=== PATIENT | female | born 1980 | race Caucasian/White ===

== ENCOUNTER 2020-09-15 13:33 | Outpatient (REF) | payer BC, SELFPAY ==
[2020-09-15 15:22] LABS: HCG Quantitative < 2 mIU/mL; Thyroid Stimulating Hormone 2.49 uIU/mL (0.32-4.0)
[2020-09-16 06:11] LABS: Follicle Stimulating Hormone 11.9 mIU/mL
== END 2020-09-15 13:34 | disposition home or self-care (01) ==
LOC: HO.LAB 13:33
PROVIDERS: PCP Internal Medicine; Visit Provider Advanced Practice Midwife
DX: Z01.411 Encounter for gynecological examination (general) (routine) with abnormal findings (principal); N92.6 Irregular menstruation, unspecified; R10.2 Pelvic and perineal pain
CPT/HCPCS: 36415; 83001; 84443; 84702

== ENCOUNTER 2020-09-20 15:02 | Outpatient (REF) | payer BC, SELFPAY ==
--- NOTE | ~2020-09-20 | US_ITS ---
EXAMINATION: ULTRASOUND OF THE PELVIS CLINICAL INFORMATION: Pelvic/perineal pain.. COMPARISON: 03/06/2019. TECHNIQUE: Transabdominal and transvaginal pelvic ultrasound. A transvaginal study was performed in addition to the transabdominal study which did not yield an adequate examination of the uterus and ovaries due to superimposed distended gas-filled loops of bowel. FINDINGS: The uterus is normal in size and appearance, measuring 8.1 x 4.3 x 4.9 cm longitudinally, anteroposteriorly and transversely. The endometrial stripe thickness is normal, measuring 0.8 cm in thickness. Small cystic areas noted along the endometrium. No focal myometrial mass is seen. The ovaries bilaterally are visualized, with the right ovary measuring 2.4 x 1.2 x 1.6 cm and the left ovary measuring 5.5 x 2.7 x 3.6 cm. There is a complex cyst in the left ovary measuring 3.3 x 2.7 x 3.1 cm with a thin internal septation. Some internal echoes noted. Small amount of pelvic free fluid, adjacent to the left ovary. US/US transvaginal IMPRESSION: Complex left ovarian cyst with thin septation. Adjacent free fluid. This could represent a hemorrhagic cyst..
--- NOTE | ~2020-09-20 | US_ITS ---
EXAMINATION: ULTRASOUND OF THE PELVIS CLINICAL INFORMATION: Pelvic/perineal pain.. COMPARISON: 03/06/2019. TECHNIQUE: Transabdominal and transvaginal pelvic ultrasound. A transvaginal study was performed in addition to the transabdominal study which did not yield an adequate examination of the uterus and ovaries due to superimposed distended gas-filled loops of bowel. FINDINGS: The uterus is normal in size and appearance, measuring 8.1 x 4.3 x 4.9 cm longitudinally, anteroposteriorly and transversely. The endometrial stripe thickness is normal, measuring 0.8 cm in thickness. Small cystic areas noted along the endometrium. No focal myometrial mass is seen. The ovaries bilaterally are visualized, with the right ovary measuring 2.4 x 1.2 x 1.6 cm and the left ovary measuring 5.5 x 2.7 x 3.6 cm. There is a complex cyst in the left ovary measuring 3.3 x 2.7 x 3.1 cm with a thin internal septation. Some internal echoes noted. Small amount of pelvic free fluid, adjacent to the left ovary. US/US pelvic complete IMPRESSION: Complex left ovarian cyst with thin septation. Adjacent free fluid. This could represent a hemorrhagic cyst..
== END 2020-09-20 15:03 | disposition home or self-care (01) ==
LOC: HO.US 15:02
PROVIDERS: PCP Internal Medicine; Visit Provider Advanced Practice Midwife
DX: R10.2 Pelvic and perineal pain (principal)
CPT/HCPCS: 76830; 76856

== ENCOUNTER → 2020-10-08 11:46 | Outpatient (BNVA) | payer BC, SELFPAY | PROVIDERS: PCP Internal Medicine; Visit Provider Advanced Practice Midwife ==

== ENCOUNTER 2020-11-11 15:55 | Outpatient (REF) | payer BC, SELFPAY ==
--- NOTE | ~2020-11-11 | MM_ITS ---
EXAMINATION: MM SCREENING DIGITAL BREAST TOMOSYNTHESIS, BILATERAL CLINICAL INFORMATION: Screening. Asymptomatic. The lifetime risk of breast cancer based on the Tyrer-Cuzick Model is 9.6%. COMPARISON: Mammography: September 05, 2019 TECHNIQUE: Digital breast tomosynthesis is performed in both the craniocaudal and mediolateral oblique views along with computer-aided detection (CAD). Synthesized 2D images are generated from the tomosynthesis. FINDINGS: The breasts are extremely dense, which lowers the sensitivity of mammography (ACR BI-RADS breast composition Category d). There are no significant masses, abnormal calcifications, or other abnormalities. MM/MM tomosynthesis screening BI IMPRESSION: There are no significant changes from prior study. ASSESSMENT: BI-RADS 1: Negative RECOMMENDATION: Routine annual mammography screening. This patient's information was entered into a reminder system with a target due date for their next mammogram.
== END 2020-11-11 15:56 | disposition home or self-care (01) ==
LOC: HO.MAMMO 15:55
PROVIDERS: Visit Provider Internal Medicine
DX: Z12.31 Encounter for screening mammogram for malignant neoplasm of breast (principal)
CPT/HCPCS: 77063; 77067

== ENCOUNTER 2020-11-22 10:58 | Outpatient (REF) | payer BC, SELFPAY ==
--- NOTE | ~2020-11-22 | US_ITS ---
EXAMINATION: US PELVIS AND TRANSVAGINAL CLINICAL INFORMATION: Ovarian cyst. Vaginal bleeding. COMPARISON: Ultrasound 09/20/2020. TECHNIQUE: Transabdominal and transvaginal imaging of pelvis is performed. FINDINGS: Uterus is anteverted and anteflexed measuring 7.2 cm in length, 4.2 cm in AP and 4.1 cm in transverse dimension. There are 2 hypoechoic lesions seen. Lesion in the posterior body of the uterus measures 0.3 x 0.3 x 0.3 cm and is likely a small cyst. Second lesion in the posterior body of the uterus measures 0.3 x 0.2 x 0.2 cm. It is also a cyst. The endometrial thickness is 0.3 cm and is within normal limits. Right ovary measures 2.3 x 1.5 x 1.0 cm and volume 2.2 mL. Previously right ovary measured 2.4 x 1.2 x 1.6 cm. The left ovary measures 3.5 x 1.2 x 1.9 cm and volume 4.4 mL. Previously it measured 3.5 x 1.3 x 1.9 cm and volume 4.4 mL. There is no free fluid in the cul-de-sac. US/US pelvic and transvaginal IMPRESSION: Small subendometrial cysts of the uterus. The uterus otherwise unremarkable. Unremarkable ovaries. There is no free fluid in the cul-de-sac.
== END 2020-11-22 10:59 | disposition home or self-care (01) ==
LOC: HO.US 10:58
PROVIDERS: Visit Provider Advanced Practice Midwife
DX: N83.299 Other ovarian cyst, unspecified side (principal)
CPT/HCPCS: 76830; 76856

== ENCOUNTER → 2020-12-06 11:31 | Outpatient (BNVA) | payer BC, SELFPAY | PROVIDERS: PCP Internal Medicine; Visit Provider Advanced Practice Midwife ==

== ENCOUNTER 2021-11-15 16:05 | Outpatient (REF) | payer BC, SELFPAY ==
--- NOTE | ~2021-11-15 | MM_ITS ---
EXAMINATION: MM SCREENING DIGITAL BREAST TOMOSYNTHESIS, BILATERAL CLINICAL INFORMATION: Screening. Asymptomatic. The lifetime risk of breast cancer based on the Tyrer-Cuzick Model is 10.6%. COMPARISON: Mammography: November 11, 2020 and September 05, 2019 TECHNIQUE: Digital breast tomosynthesis is performed in both the craniocaudal and mediolateral oblique views along with computer-aided detection (CAD). Synthesized 2D images are generated from the tomosynthesis. FINDINGS: The breasts are extremely dense, which lowers the sensitivity of mammography (ACR BI-RADS breast composition Category d). There are no significant masses, abnormal calcifications, or other abnormalities. MM/MM tomosynthesis screening BI IMPRESSION: There are no significant changes from prior study. ASSESSMENT: BI-RADS 1: Negative RECOMMENDATION: Routine annual mammography screening. This patient's information was entered into a reminder system with a target due date for their next mammogram.
== END 2021-11-15 16:06 | disposition home or self-care (01) ==
LOC: HO.MAMMO 16:05
PROVIDERS: Visit Provider Internal Medicine
DX: Z12.31 Encounter for screening mammogram for malignant neoplasm of breast (principal)
CPT/HCPCS: 77063; 77067

== ENCOUNTER 2021-12-08 11:04 | Outpatient (REF) | payer BC, SELFPAY ==
[2021-12-15 06:46] LABS: HPV mRNA E6/E7 rflx Not Detected (Not Detected)
== END 2021-12-08 11:05 | disposition home or self-care (01) ==
LOC: HO.LAB 11:04
PROVIDERS: Visit Provider Advanced Practice Midwife
DX: Z01.419 Encounter for gynecological examination (general) (routine) without abnormal findings (principal); Z11.51 Encounter for screening for human papillomavirus (HPV)
CPT/HCPCS: 87624; 88142

== ENCOUNTER 2022-12-07 15:27 | Outpatient (REF) | payer BC, SELFPAY ==
--- NOTE | ~2022-12-07 | MM_ITS ---
EXAMINATION: MM SCREENING DIGITAL BREAST TOMOSYNTHESIS, BILATERAL CLINICAL INFORMATION: Screening. Asymptomatic. The lifetime risk of breast cancer based on the Tyrer-Cuzick Model is 14%. COMPARISON: Mammography: 11/15/2021, 11/11/2020, 09/05/2019 TECHNIQUE: Digital breast tomosynthesis is performed in both the craniocaudal and mediolateral oblique views along with computer-aided detection (CAD). Synthesized 2D images are generated from the tomosynthesis. FINDINGS: The breasts are heterogeneously dense, which may obscure small masses (ACR BI-RADS breast composition Category c). Breast tissue composition borders on extremely dense. Parenchymal pattern is similar to prior studies and there is no developing density or architectural abnormality. There are no significant masses, abnormal calcifications, or other abnormalities. The axilla and skin contours are unremarkable. MM/MM tomosynthesis screening BI IMPRESSION: No mammographic evidence of malignancy. ASSESSMENT: BI-RADS 1: Negative RECOMMENDATION: Routine annual mammography screening. This patient's information was entered into a reminder system with a target due date for their next mammogram.
== END 2022-12-07 15:28 | disposition home or self-care (01) ==
LOC: HO.MAMMO 15:27
PROVIDERS: Visit Provider Internal Medicine
DX: Z12.31 Encounter for screening mammogram for malignant neoplasm of breast (principal)
CPT/HCPCS: 77063; 77067

== ENCOUNTER → 2022-12-13 11:12 | Outpatient (BNVA) | payer BC, SELFPAY | PROVIDERS: PCP Internal Medicine; Visit Provider Advanced Practice Midwife ==

== ENCOUNTER 2023-12-21 10:09 | Outpatient (REF) | payer BC, SELFPAY ==
--- NOTE | ~2023-12-21 | MM_ITS ---
EXAMINATION: MM SCREENING DIGITAL BREAST TOMOSYNTHESIS, BILATERAL CLINICAL INFORMATION: Screening. Asymptomatic. COMPARISON: Mammography: This study is compared with prior exams dating back to 2019. TECHNIQUE: Digital breast tomosynthesis is performed in both the craniocaudal and mediolateral oblique views along with computer-aided detection (CAD). Synthesized 2D images are generated from the tomosynthesis. FINDINGS: The breasts are extremely dense, which lowers the sensitivity of mammography (ACR BI-RADS breast composition Category d). There are no significant masses, abnormal calcifications, or other abnormalities. MM/MM tomosynthesis screening BI IMPRESSION: No mammographic evidence of malignancy. ASSESSMENT: BI-RADS BI-RADS 1 - Negative RECOMMENDATION: Routine annual mammography screening. 1 year F/U This examination should not preclude the clinical evaluation of a suspicious palpable abnormality. This patient's information was entered into a reminder system with a target due date for their next mammogram.
== END 2023-12-21 10:10 | disposition home or self-care (01) ==
LOC: HO.MAMMO 10:09
PROVIDERS: PCP Internal Medicine; Visit Provider Internal Medicine
DX: Z12.31 Encounter for screening mammogram for malignant neoplasm of breast (principal)
CPT/HCPCS: 77063; 77067

== ENCOUNTER → 2023-12-21 10:15 | Outpatient (BNV) | payer BC, SELFPAY | PROVIDERS: PCP Internal Medicine; Visit Provider Radiology Diagnostic Radiology | DX: Z12.31 Encounter for screening mammogram for malignant neoplasm of breast (principal) | CPT/HCPCS: 77063; 77067 ==

== ENCOUNTER 2023-12-26 11:39 | Outpatient (AMB) | payer BC, SELFPAY ==
--- NOTE | 2023-12-26 11:42 | MHC.OFFVIS ---
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 Doing well with no concerns: Bladder discomfort x1 day while outside walking, she denies any pelvic pain but admits to pelvic bloating. She denies any constipation or diarrhea. She tries to eat healthy and stays active with exercise. No menses since 09/2022. Admits to hot flashes. Currently is sexually active. She denies vaginal itching, irritation or dryness. STI screening offered; she declines. Denies family history of breast, ovarian or colon cancer. Last pap smear 2021, negative. Mammogram: Pending read. [facility] Medical History Hot flashes Irregular menses Surgical History Hx of section Family History Maternal Aunt History of breast cancer Social History Household Members: Spouse and Children Housing: House Alcohol intake: current Patient Tobacco Use Status: Former Tobacco user Sexual orientation: Straight/Heterosexual Gender identity: Female Female Reproductive History Menstrual Age of Menarche: 14 control method: other (vasectomy) Total pregnancies: 2 Full term: 2 Number of Living Children: 2 Date of last pap smear: 12/08/21 (neg pap and hpv) Date of Mammogram: 12/21/23 Review of Systems Const All systems reviewed & are unremarkable except as noted in HPI and below Reports as per HPI Eyes Reports no additional complaints ENT Reports no additional complaints Card Reports no additional complaints Resp Reports no additional complaints GI Reports as per HPI and Reports no additional complaints Reports as per HPI Musc Reports no additional complaints Skin/Breast Reports as per HPI Neuro Reports no additional complaints Psych Reports no additional complaints Endo Reports no additional complaints Alberto/Lymph Reports no additional complaints Aller/Immun Reports no additional complaints Physical Exam Vital Signs: Last Vital Signs BP 100/60 12/26/23 11:43 BMI result Body Mass Index 20.6 Const General: cooperative, healthy appearing, no acute distress, well developed and alert Orientation/consciousness: patient oriented x3 HEENT Head: Yes normal to inspection Eyes General: appearance normal, both eyes and all related structures Neck Neck: Yes normal visual inspection Thyroid: Thyroid normal Chest Chest palpation & inspection: normal inspection of the chest and other (no puckering, dimpling, peau de orange, retraction, discharge, masses) Breast/axilla inspection: normal inspection of the breasts Breast/axilla palpation: normal palpation of the breasts Resp Effort & Inspection: normal respiratory effort GI Inspection: Yes normal to inspection Palpation (GI): Soft to palpation Rectal Exam - Female: deferred General: Yes bladder normal to palpation External Female Exam: normal external appearance and normal appearance of the urethra Speculum Exam - Vagina: normal appearance of the vagina, normal palpation and normal vaginal discharge Speculum Exam - Cervix: normal appearance of the cervix and normal palpation Bimanual exam- vagina & uterus: normal bimanual exam, normal palpation, uterine size normal, bladder normal to palpation, normal palpation and non-tender Bimanual Exam- Adnexa, other: Other (Fullness to the right adnexa question of a loop of bowel.) Skin General skin exam: no rashes or lesions noted Rashes: no rashes Neuro General: patient oriented x3 Cognition (Neuro): normal cognition Extrem General: Yes normal to inspection Psych Attitude: cooperative Thought process: Normal thought process present Results AMB Urinalysis, Automated UA Leukoctes 0 Leighann/uL Last Edit by CORRINE Smith on 12/26/23 12:10 UA Nitrite Negative Last Edit by CORRINE Smith on 12/26/23 12:10 UA Urobilinogen 0 mg/dL Last Edit by CORRINE Smith on 12/26/23 12:10 UA Protein 0 mg/dL Last Edit by CORRINE Smith on 12/26/23 12:10 UA pH 6.5 Last Edit by CORRINE Smith on 12/26/23 12:10 UA Blood 0 Ryan/uL Last Edit by CORRINE Smith on 12/26/23 12:10 UA Specific [place] 1.015 Last Edit by CORRINE Smith on 12/26/23 12:10 UA Ketone Negative Last Edit by Renita Juan CORRINE on 12/26/23 12:10 UA Bilirubin 0 mg/dL Last Edit by Renita Juan CORRINE on 12/26/23 12:10 UA Glucose 0 mg/dL Last Edit by Renita Juan CORRINE on 12/26/23 12:10 Assessment & Plan Assessment & Plan (1) Encounter for well woman exam with routine gynecological exam: Code(s): Z01.419 - Encounter for gynecological examination (general) (routine) without abnormal findings Category: Medical Plan: Discussed: Current recommendations for pap smears per ASCCP guidelines. Breast awareness and periodic breast exams. Maintain a healthy lifestyle including a well balanced diet and routine exercise. Workup for pelvic fullness to include pelvic ultrasound, follow up in person for test results. Any pelvic pain to report to the office or go to the emergency room if significant pain. Urinalysis is negative today. Mammogram yearly. Menopausal changes, the role of HRT. Informed of [email or web address].org, will consider options and discuss it follow up. Patient verbalizes understanding and agrees to the plan of care. She was given opportunity to ask questions and all questions were answered to the best of my ability. 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 This note is constructed using voice recognition software. While every effort has been made to ensure accuracy, donor services coordinator errors may have been included. Orders: Orders AMB Urinalysis Automated Today R10.2 - Pelvic and perineal pain US pelvic and transvaginal Today R19.00 - Intra-abdominal and pelvic swelling, mass and lump, unspecified site Coding Level of Care Code Est Pt Prev Care 40-64y(04164) Diagnoses Encounter for well woman exam with routine gynecological exam Z01.419
[2023-12-26 11:43] VITALS: BP 100/60; BMI 20.6
== END 2023-12-26 12:09 | disposition home or self-care (01) ==
LOC: HO.HWS 11:39
PROVIDERS: PCP Internal Medicine; Visit Provider Advanced Practice Midwife
DX: Z01.419 Encounter for gynecological examination (general) (routine) without abnormal findings (principal); R10.2 Pelvic and perineal pain
CPT/HCPCS: 99396

== ENCOUNTER → 2023-12-26 11:39 | Outpatient (BNVA) | payer BC, SELFPAY | PROVIDERS: PCP Internal Medicine; Visit Provider Advanced Practice Midwife | DX: Z01.411 Encounter for gynecological examination (general) (routine) with abnormal findings (principal); R10.2 Pelvic and perineal pain; R19.00 Intra-abdominal and pelvic swelling, mass and lump, unspecified site | CPT/HCPCS: 81003 ==

== ENCOUNTER 2024-01-14 11:09 | Outpatient (REF) | payer BC, SELFPAY ==
--- NOTE | ~2024-01-14 | US_ITS ---
EXAMINATION: US PELVIS CLINICAL INFORMATION: Pelvic fullness, right lower quadrant pain, last menstrual. September 2022. COMPARISON: November 22, 2020. TECHNIQUE: Ultrasound of the pelvis is performed using both transabdominal and transvaginal transducers along with Doppler. Transvaginal imaging is performed due to inadequate visualization transabdominally. FINDINGS: The uterus is anteverted and measures 6.8 x 3.2 x 4.7 cm. Uterus is heterogeneous in echotexture. Previously identified fibroids are not visualized. Endometrial thickness is 4 mm. No significant free fluid. Previously identified myometrial cysts are not visualized on the current exam, although the myometrium is substantially heterogeneous. Right ovary measures 1.9 x 0.7 x 1.8 cm, volume 1.3 mL. Left ovary measures 2.5 x 0.9 x 1.6 cm, volume 1.9 mL. US/US pelvic and transvaginal IMPRESSION: 1. Endometrial thickness is 4 mm. 2.Previously identified myometrial cysts are not visualized on the current exam, although the myometrium is substantially heterogeneous. Previously identified fibroids are not visualized on the current exam. 3. Unremarkable bilateral ovaries.
== END 2024-01-14 11:10 | disposition home or self-care (01) ==
LOC: HO.US 11:09
PROVIDERS: PCP Internal Medicine; Visit Provider Advanced Practice Midwife
DX: R19.00 Intra-abdominal and pelvic swelling, mass and lump, unspecified site (principal)
CPT/HCPCS: 76830; 76856

== ENCOUNTER 2024-02-05 15:08 | Outpatient (AMB) | payer BC, SELFPAY ==
--- NOTE | 2024-02-05 15:20 | MHC.OFFVIS ---
Intake Visit Reasons: Ultra sound follow up Adult Live In Caregiver: Adult Live In Caregiver Present Allergies penicillin V Allergy (Unknown, Verified 02/05/24 15:20) hives Is last menstrual period known: Yes HPI Comments Details: Patient is here today for a follow up ultrasound results due to history of pelvic fullness with recent exam. History of fibroids. She reports no menses in over a year. Hot flashes have much improved this year. She denies any pelvic pain. Admits to frequency of urination longstanding most of her life has bladder control during school year but off time seems to be going more frequently. PFSH Surgical History Hx of section Family History Maternal Aunt History of breast cancer Social History Household Members: Spouse and Children Housing: House Alcohol intake: current Patient Tobacco Use Status: Former Tobacco user Sexual orientation: Straight/Heterosexual Gender identity: Female Female Reproductive History Menstrual Age of Menarche: 14 Review of Systems Const All systems reviewed & are unremarkable except as noted in HPI and below Endo Reports no additional complaints Physical Exam Const General: cooperative, healthy appearing and no acute distress Psych Appearance: well kempt Attitude: cooperative Thought process: Normal thought process present Results Reviewed Results Reviewed: [address] [address] Ultrasound Report Signed Patient: Nathalie Sol MR#: [id number] : 1980 Acct:[id number] Age/Sex: 43 / F ADM Date: 01/14/24 Loc: HO.US Attending Dr: Leticia Mattson CNM Ordering Physician: Leticia Mattson CNM Date of Service: 01/14/24 Procedure(s): US pelvic and transvaginal Accession Number(s): [id number] cc: Olvin Worrell MD; Leticia Mattson CNM~ EXAMINATION: US PELVIS CLINICAL INFORMATION: Pelvic fullness, right lower quadrant pain, last menstrual. September 2022. COMPARISON: November 22, 2020. TECHNIQUE: Ultrasound of the pelvis is performed using both transabdominal and transvaginal transducers along with Doppler. Transvaginal imaging is performed due to inadequate visualization transabdominally. FINDINGS: The uterus is anteverted and measures 6.8 x 3.2 x 4.7 cm. Uterus is heterogeneous in echotexture. Previously identified fibroids are not visualized. Endometrial thickness is 4 mm. No significant free fluid. Previously identified myometrial cysts are not visualized on the current exam, although the myometrium is substantially heterogeneous. Right ovary measures 1.9 x 0.7 x 1.8 cm, volume 1.3 mL. Left ovary measures 2.5 x 0.9 x 1.6 cm, volume 1.9 mL. US/US pelvic and transvaginal IMPRESSION: 1. Endometrial thickness is 4 mm. 2.Previously identified myometrial cysts are not visualized on the current exam, although the myometrium is substantially heterogeneous. Previously identified fibroids are not visualized on the current exam. 3. Unremarkable bilateral ovaries. Dictated By: Princess Tillman MD Signed By: <Electronically signed by Princess Tillman MD in OV> 01/29/24 0655 DD/ 1152 TD/TT: Lead Radiation Therapist: Assessment & Plan Assessment & Plan (1) Encounter to discuss test results: Code(s): Z71.2 - Person consulting for explanation of examination or test findings (2) Menopausal state: Code(s): N95.1 - Menopausal and female climacteric states Plan Discussed: Ultrasound findings resolution of fibroids and myometrial cyst. Normal ovaries. Bladder frequency, bladder training advised to consider referral to urology for further evaluation, she would like to think about it and let me know in the future if she decides to do the referral. Plan [facility]. Sign up for patient portal, and schedule annual for next 01/04/2025. All of her questions and concerns were addressed to the best of my ability and shared decision making. She is agreeable to the plan of care. This note is constructed using voice recognition software. While every effort has been made to ensure accuracy, it audit manager errors may have been included. Orders: Orders Follicle Stimulating Hormone Today N91.2 - Amenorrhea, unspecified Coding Level of Care Code Est Pt Level 3 (81250) Diagnoses Encounter to discuss test results Z71.2 Menopausal state N95.1
== END 2024-02-05 18:47 ==
PROVIDERS: PCP Internal Medicine; Visit Provider Advanced Practice Midwife
DX: Z71.2 Person consulting for explanation of examination or test findings (principal); N95.1 Menopausal and female climacteric states
CPT/HCPCS: 99213

== ENCOUNTER → 2024-02-05 15:08 | Outpatient (BNVA) | payer BC, SELFPAY | PROVIDERS: PCP Internal Medicine; Visit Provider Advanced Practice Midwife ==

== ENCOUNTER 2024-02-05 15:54 | Outpatient (REF) | payer BC, SELFPAY ==
[2024-02-06 07:14] LABS: Follicle Stimulating Hormone 87.8 mIU/mL
== END 2024-02-05 15:55 | disposition home or self-care (01) ==
LOC: HO.LAB 15:54
PROVIDERS: PCP Internal Medicine; Visit Provider Advanced Practice Midwife
DX: N91.2 Amenorrhea, unspecified (principal)
CPT/HCPCS: 36415; 83001

== ENCOUNTER 2025-01-02 10:00 | Outpatient (REF) | payer BC, SELFPAY ==
--- OUTSIDE RECORDS SUMMARY | 2025-01-02 10:19 | XMS_ITS | Clinical Summary ---
Author Organization [facility] Address [address] [place] [address] Care Team Providers Care Supercalender Operator Name Role Phone Olvin Worrell MD Primary Care Provider [phone] Allergies Active Allergy Reactions Criticality Noted Date Comments Penicillin 01/03/2022 Medications acetaminophen (TYLENOL) 325 mg tablet Take 3 (three) tablets (975 mg total) by mouth every 6 (six) hours as needed. 30 tablet 01/03/2022 Active Social History Tobacco Use Types Packs/Day Years Used Date Smoking Tobacco: Never Smokeless Tobacco: Never Alcohol Use Standard Drinks/Week Comments Yes 0 (1 standard drink = 0.6 oz pur e alcohol) Comments Unknown Sex and Gender Information Value Date Recorded Sex Assigned at Not on file Legal Sex Female 6:13 PM EDT Gender Identity Not on file Sexual Orientation Not on file Last Filed Vital Signs Vital Sign Reading Time Taken Comments Blood Pressure 126/78 01/05/2022 12:45 PM EDT Pulse 62 01/05/2022 12:45 PM EDT Temperature 36.4 C (97.5 F) 01/05/2022 12:45 PM EDT Respiratory Rate 14 01/03/2022 6:25 PM EDT Oxygen Saturation 99% 01/03/2022 6:25 PM EDT Inhaled Oxygen Concentration - - Weight - - Height 172.7 cm (5' 8 ) 01/03/2022 6:25 PM EDT Body Mass Index - - Plan of Treatment Health Maintenance Due Date Last Done Comments HEPATITIS C SCREENING 1996 Cervical Cancer Screening 2000 Pap Smear 2000 DTAP/TDAP/TD VACCINES (1 - Tdap) 2008 HPV Test 2009 COVID-19 IMMUNIZATION (1 - 2 season) 2024 COLONOSCOPY (CRC) 2024 COLORECTAL CANCER SCREENING (CRC) [address]24 CT COLONOGRAPHY (CRC) 2024 FIT-DNA (CRC) 2024 FIT/iFOBT (CRC) 2024 SIGMOIDOSCOPY (CRC) 2024 INFLUENZA VACCINE (#1) 2025 04/11/2021 ZOSTER VACCINE (1 of 2) 2029 RSV IMMUNIZATION (1 - 1-dose 75+ series) 2054 IPV VACCINES Aged Out No longer eligi ble based on patient's age to complete this topic MENINGOCOCCAL B VACCINE Aged Out No l onger eligible based on patient's age to complete this topic PNEUMOCOCCAL VACCINE Aged Out No long er eligible based on patient's age to complete this topic Insurance ([facility] Address: [address] [place] [phone] Care Teams Supercalender Operator Relationship Specialty Start Date End Date Olvin Worrell MD [address] [place] [address] [address] [place] [id number] PCP - General Internal Medicine 01/05/22
== END 2025-01-02 10:01 | disposition home or self-care (01) ==
LOC: HO.MAMMO 10:00
PROVIDERS: Visit Provider Internal Medicine
DX: Z12.31 Encounter for screening mammogram for malignant neoplasm of breast (principal)
CPT/HCPCS: 77063; 77067

== ENCOUNTER → 2025-01-02 10:00 | Outpatient (BNV) | payer BC, SELFPAY | PROVIDERS: Visit Provider Radiology Body Imaging | DX: Z12.31 Encounter for screening mammogram for malignant neoplasm of breast (principal) | CPT/HCPCS: 77063; 77067 ==

== ENCOUNTER 2025-02-02 09:32 | Outpatient (AMB) | payer BC, SELFPAY ==
--- NOTE | 2025-02-02 09:36 | A.OFFPC_ITS ---
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 Lives at home with abi and 2 teenagers, feels safe there. 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 Alcohol socially on the weekend. Occasional THC gummie to help with sleep. No illicit drugs. Smoked cigarettes for 9 years, quit age 21, 1 pack per week. She runs 5 days per week, outside of injury, about 3-5 miles per day. Also lifts weights. Follows a healthy diet. Concerns: Pain L foot, concerned for plantar fasciitis ongoing x 1 month. No injury. She is a runner- doesnt hurt when running. Pain at rest and at night. Rolling foot over a tennis ball. Picked up her friends child's ortho boot. [place] like this is somewhat helpful. Not using inserts. Shoes are well feeting Onychomycosis-bilateral 4th toes, longstanding. Has been using topical ciclopirox without any effect Health maintenance: Last screening mammogram 01/02/2025, negative for malignancy, 1 year follow-up advised. Appt next week Follows annually with attending ambulatory care. Last Pap 12/08/2021 without any concerning lesions or malignancy. Negative for HPV Due for screening colonoscopy ROS: General: No fevers, malaise, unintentional weight loss HEENT: No blurred vision, diplopia. No sore throat, nasal congestion, rhin orrhea, sinus pain, ear pain. No hearing loss Neck - no adenopathy Cardiovascular: No chest pain, palpitations, or leg edema Respiratory: No shortness of breath, wheezing, cough Breast: No pain, palpable lumps, nipple inversion GI: No dysphagia, odynophagia, globus sensation. No abdominal pain, nausea, vomiting, diarrhea, constipation, melena, hematochezia : No dysuria, hematuria, increased urinary frequency, decreased urinary output. 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 See HPI Neuro: No headaches, weakness, paresthesias Psych: no depression/anxiery. No AH/VH. No SI/HI Skin: No rashes or lesions EXAM: Constitutional - Awake and Alert, No apparent distress Eyes - PERRLA, EOMI. Anicteric Ears - external ears normal, canals clear, TMs intact and pearly [place]ckee with good cone of light Nose- septum midline, nares clear, no sinus tenderness Mouth/throat- mucosa moist, tongue and uvula midline, no erythema/edema or tonsillar adenopathy. Neck-trachea midline, thyroid symmetric without palpable nodules, no adenopathy Cardiovascular - S1S2, RRR, No edema Respiratory - Normal lung expansion, Normal respiratory effort, No respiratory distress, CTA bilaterally Gastrointestinal - NT / ND; +BS; No rebound or guarding - No CVA tenderness Extremities - no calf tenderness bilaterally, no swelling Musculoskeletal - Normal inspection, normal ROM. R foot- no ttp, full rom. L foot- tenderness to palpation over the insertion of the plantar fascia into the calcaneus. No other tenderness to palpation. No tenderness with dorsiflexion. Hallux valgus deformity noted bilaterally hallux valgus Skin - Warm/Dry, no concerning lesions. Onychomycosis of the 4th toes bilaterally Neurological - Alert & oriented x3, CN II-XII in tact, 5/5 strength BUE and BLE, 2+ patellar reflexes, sensation intact Psychological - Appropriate affect [facility] Medical History (Updated 02/02/25 @ 10:08 by TOD Mack) No pertinent past medical history Encounter for well woman exam with routine gynecological exam Surgical History (Updated 02/02/25 @ 09:54 by TOD Mack) S/P Achilles tendon repair Hx of section Family History Maternal Aunt History of breast cancer Social History Household Members: Spouse and Children Housing: House Alcohol intake: current Patient Tobacco Use Status: Former Tobacco user Substance Use Type: Marijuana Sexual orientation: Straight/Heterosexual Gender identity: Female Female Reproductive History Menstrual Age of Menarche: 14 Questionnaire PHQ-9 Over the last 2 weeks, how often have you been bothered by any of the following problems? 1. Little interest or pleasure in doing things: not at all 2. Feeling down, depressed, or hopeless: not at all 3. Trouble falling or staying asleep, or sleeping too much: nearly every day 4. Feeling tired or having little energy: several days 5. Poor appetite or overeating: several days 6. Feeling bad about yourself - or that you are a failure or have let yourself or your family down: not at all 7. Trouble concentrating on things, such as reading the newspaper or watching television: several days 8. Moving or speaking so slowly that other people could have noticed. Or the opposite - being so fidgety or restless that you have been moving around a lot more than usual: not at all 9. Thoughts that you would be better off or of hurting yourself in some way: not at all Total score: 6 Depression Screening Interpretation: Negative Depression Screening Done: Yes 67258 - PHQ-9 Billing: Yes Source: Developed by Drs. Raji Ibarra, Heaven Eli, Claudy Woods and colleagues, with an educational renuka from [employer]. Thrive Questionnaire Date Thrive assessed: 02/02/25 I am a: Patient What is your living situation today?: I have a steady place to live Within the past 12 months, did the food you bought not last and you didn't have the money to get more?: Never true Within the past 12 months, did you worry whether your food would run out before you got money to buy more?: Never true Do you have trouble paying for medicines?: No Do you have trouble getting transportation to medical appointments?: No Do you have trouble paying your heating and electricity bill?: No Do you have trouble taking care of your child, family member or friend?: No Do you have trouble with day-to-day activities such as bathing, preparing meals, shopping, managing finances, etc.?: No Are you currently unemployed and looking for a job?: No Are you interested in more education?: No Currently or been in a relationship where the following occur: No concerns reported THRIVE Score: 0 HA-7 AMB Questionnaire HA-7 Feeling nervous, anxious, or on edge: 1 = Several days Not being able to stop or control worryin = Not at all Worrying too much about different things: 1 = Several days Trouble relaxin = Several days Being so restless that it is hard to sit still: 1 = Several days Becoming easily annoyed or irritable: 1 = Several days Feeling afraid as if something awful might happen: 0 = Not at all Total HA-7 score (0-4 normal; 5-9 mild; 10-14 moderate; 15-21 severe): 5 Source: Developed by Drs. Raji Ibarra, Heaven Eli, Claudy Woods and colleagues, with an educational renuka from [employer]. HA-7 Assessment Billing HA-7 Assessment Tool: HA-7 Assessment 23770 Physical exam (Primary Care) Vital Signs: Last Vital Signs Temp 98.6 F 02/02/25 09:38 Pulse 68 02/02/25 09:38 Resp 14 02/02/25 09:38 BP 100/76 02/02/25 09:38 Pulse Ox 98 02/02/25 09:38 Oxygen Delivery Method Room Air 02/02/25 09:38 BMI result Body Mass Index 20.5 Tobacco/Smoking Status: Tobacco use Status Patient Tobacco Use Status Former Tobacco user 02/02/25 09:36 Depression Screening Interpretation: Negative Currently or been in a relationship where the following occur: No concerns reported Coding Level of Care Code New Pt Prev Care 40-64y(35378) Diagnoses Routine medical exam Z00.00 Onychomycosis B35.1 Bilateral plantar fasciitis M72.2 Additional Codes PHQ-9 - 16918 - PHQ-9 Billing: Yes ([id number]) HA-7 Assessment Billing - HA-7 Assessment Tool: HA-7 Assessment 61026 ([id number]) Assessment & Plan Assessment & Plan (1) Routine medical exam: Code(s): Z00.00 - Encounter for general adult medical examination without abnormal findings Plan: 44-year-old female presenting for annual exam. Patient is found to be in a good general state of health. Plan as below (2) Onychomycosis: Code(s): B35.1 - Tinea unguium Category: Medical Plan: Can continue using topical cycle PI-RADS but has had limited relief. Referred to Dermatology (3) Bilateral plantar fasciitis: Code(s): M72.2 - Plantar fascial fibromatosis Category: Medical Plan: Left greater than right. Declines referral to physical therapy at this time. Recommend conservative therapies as she is already doing at home. Do recommend adding arch arch in her shoes Plan Routine screening labs as ordered below Continue with screening mammograms, Pap smears. Referred for screening colonoscopy Referred for skin exam and advised to continue use of sunscreens Annual eye exams Wear seat belt in car Recommend regular exercise and healthy diet Orders: Orders Complete Blood Count Auto Diff Today Z00.00 - Encounter for general adult medical examination without abnormal findings Lipid Panel Today Z00.00 - Encounter for general adult medical examination without abnormal findings Liver Panel Today Z00.00 - Encounter for general adult medical examination without abnormal findings TSH reflex Free T4 Today Z00.00 - Encounter for general adult medical examination without abnormal findings Vitamin D 25-OH Total Today Z00.00 - Encounter for general adult medical examination without abnormal findings Basic Metabolic Panel Today Z00.00 - Encounter for general adult medical examination without abnormal findings Referrals Dermatology Referral B35.1 - Tinea unguium, Z12.83 - Encounter for screening for malignant neoplasm of skin Gastroenterology Referral Z12.11 - Encounter for screening for malignant neoplasm of colon
[2025-02-02 09:38] VITALS: BP 100/76; PULSE 68; RESP 14; TEMP 37; O2SAT 98; BMI 20.5
--- OUTSIDE RECORDS SUMMARY | 2025-02-02 10:05 | XMS_ITS | Clinical Summary ---
Author Organization [facility] Address [address] [place] [address] Care Team Providers Care Casting Chipper Name Role Phone Olvin Worrell MD Primary Care Provider [phone] Allergies Active Allergy Reactions Criticality Noted Date [...] Mass Index - - Plan of Treatment Not on file [place] [address] [place] [address] (HMO) Care Teams Casting Chipper Relationship Specialty Start Date End Date Olvin Worrell MD [address] [place] [address] [address] [place], [place] [id number] PCP - General Internal Medicine 01/05/22
== END 2025-02-02 10:06 | disposition home or self-care (01) ==
LOC: HO.HMCHD 09:32
PROVIDERS: PCP Physician Assistant; Visit Provider Physician Assistant
DX: Z00.00 Encounter for general adult medical examination without abnormal findings (principal); B35.1 Tinea unguium; M72.2 Plantar fascial fibromatosis

== ENCOUNTER → 2025-02-02 09:32 | Outpatient (BNVA) | payer BC, SELFPAY | PROVIDERS: PCP Physician Assistant; Visit Provider Physician Assistant | DX: Z00.00 Encounter for general adult medical examination without abnormal findings (principal); Z76.89 Persons encountering health services in other specified circumstances; B35.1 Tinea unguium; M72.2 Plantar fascial fibromatosis; Z13.31 Encounter for screening for depression | CPT/HCPCS: 96127 ==

== ENCOUNTER 2025-02-02 10:13 | Outpatient (REF) | payer BC, SELFPAY ==
[2025-02-02 13:14] LABS: MANUAL DIFF FLAG NO
[2025-02-02 13:21] LABS: Hematocrit 40.9 % (37.0-47.0); Hemoglobin 13.8 g/dl (12.0-16.0); Imm Gran Abs Auto 0.01 X10*3/uL (0.00-0.03); Imm Gran Pct Auto 0.2 % (0.0-0.4); Lymphocytes Absolute Auto 1.8 X10*3/uL (1.2-4.9); Mean Corpuscular HGB Conc 33.7 g/dl (31.0-35.0); Mean Corpuscular Hemoglobin 31.6 pg (27.0-33.0); Mean Corpuscular Volume 93.6 fL (80.0-98.0); NRBC Abs Auto 0.000 X10*3/uL (0.0-0.012); NRBC Pct Auto 0.0 /100WBC (0.0-0.2); Platelet Count 217 X10*3/uL (160-400); Red Blood Count 4.37 X10*6/uL (4.20-5.50); White Blood Count 6.1 X10*3/uL (4.8-10.8)
[2025-02-02 13:49] LABS: Alanine Aminotransferase 24 U/L (0-31); Albumin Level 5.0 g/dL (3.5-5.0); Alkaline Phosphatase 61 U/L (39-117); Anion Gap 11 (12-20); Aspartate Amino Transferase 44 U/L (5-31); Blood Urea Nitrogen 24 mg/dL (9-16); Calcium 9.4 mg/dL (8.4-10.2); Carbon Dioxide 28 mmol/L (22-29); Chloride 105 mmol/L (96-108); Cholesterol 223 mg/dL (<200); Estimated Glomerular Filt Rate > 60; HDL Cholesterol 65 mg/dL (>40); Potassium 3.9 mmol/L (3.3-5.1); Sodium 140 mmol/L (135-145); Total Protein 7.5 g/dL (6.5-8.0); Triglycerides 78 mg/dL (<150)
== END 2025-02-02 10:14 | disposition home or self-care (01) ==
LOC: HO.10HDL 10:13
PROVIDERS: Visit Provider Physician Assistant
DX: Z00.00 Encounter for general adult medical examination without abnormal findings (principal); Z13.6 Encounter for screening for cardiovascular disorders
CPT/HCPCS: 36415; 80048; 80061; 80076; 82306; 84443; 85025

== ENCOUNTER 2025-02-05 15:36 | Outpatient (AMB) | payer BC, SELFPAY ==
--- OUTSIDE RECORDS SUMMARY | 2025-02-05 15:38 | XMS_ITS | Clinical Summary ---
Author Organization [facility] Address [address] [place] [address] Care Team Providers Care Digester Operator Helper Name Role Phone Olvin Worrell MD Primary Care Provider [phone] Allergies Active Allergy Reactions Criticality Noted Date [...] Plan of Treatment Not on file [place] [address] [place] [address] (HMO) Care Teams Digester Operator Helper Relationship Specialty Start Date End Date Olvin Worrell MD [address] [place] [address] [address] [place], [place] [id number] PCP - General Internal Medicine 01/05/22
--- NOTE | 2025-02-05 15:46 | MHC.OFFVIS ---
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 LMP 2022. Currently is sexually active w/painful intimacy. She denies vaginal itching or irritation. STI screening offered; she declined. She tries to eat healthy and stays active with exercise. Denies family history of ovarian or colon cancer. Breast cancer-MG. Last pap smear 2021, negative. Mammogram: 2024. [facility] Medical History Encounter for well woman exam with routine gynecological exam No pertinent past medical history Surgical History S/P Achilles tendon repair Hx of section Family History Maternal Aunt History of breast cancer Social History Household Members: Spouse and Children Housing: House Alcohol intake: current Patient Tobacco Use Status: Former Tobacco user Substance Use Type: Marijuana Sexual orientation: Straight/Heterosexual Gender identity: Female Female Reproductive History Menstrual Age of Menarche: 14 control method: other (vasectomy) Date of menopause: 09/25/22 Age of menopause: 42 Total pregnancies: 2 Full term: 2 Number of Living Children: 2 Date of last pap smear: 12/08/21 (neg pap and hpv) History of abnormal pap smear: Yes (age 19) History of STI: No Date of Mammogram: 01/02/25 (Birad 1) History of abnormal mammogram: No Review of Systems Const All systems reviewed & are unremarkable except as noted in HPI and below Reports as per HPI Eyes Reports no additional complaints ENT Reports no additional complaints Card Reports no additional complaints Resp Reports no additional complaints GI Reports as per HPI and Reports no additional complaints Reports as per HPI Musc Reports no additional complaints Skin/Breast Reports as per HPI Neuro Reports no additional complaints Psych Reports no additional complaints Endo Reports no additional complaints Alberto/Lymph Reports no additional complaints Aller/Immun Reports no additional complaints Physical Exam Vital Signs: Last Vital Signs BP 104/62 02/05/25 15:47 BMI result Body Mass Index 20.5 Const General: cooperative, healthy appearing, no acute distress, well developed and alert Orientation/consciousness: patient oriented x3 HEENT Head: Yes normal to inspection Eyes General: appearance normal, both eyes and all related structures Neck Neck: Yes normal visual inspection Thyroid: Thyroid normal Chest Chest palpation & inspection: normal inspection of the chest and other (no puckering, dimpling, peau de orange, retraction, discharge, masses) Breast/axilla inspection: normal inspection of the breasts Breast/axilla palpation: normal palpation of the breasts Resp Effort & Inspection: normal respiratory effort GI Inspection: Yes normal to inspection and Yes scar Palpation (GI): Soft to palpation Rectal Exam - Female: deferred General: Yes bladder normal to palpation External Female Exam: normal external appearance and normal appearance of the urethra Speculum Exam - Vagina: normal appearance of the vagina, normal palpation and normal vaginal discharge Speculum Exam - Cervix: normal appearance of the cervix and normal palpation Bimanual exam- vagina & uterus: normal bimanual exam, normal palpation, uterine size normal, bladder normal to palpation, normal palpation and non-tender Bimanual Exam- Adnexa, other: no masses Skin General skin exam: no rashes or lesions noted Rashes: no rashes Neuro General: patient oriented x3 Cognition (Neuro): normal cognition Extrem General: Yes normal to inspection Psych Attitude: cooperative Thought process: Normal thought process present Assessment & Plan Assessment & Plan (1) Encounter for well woman exam with routine gynecological exam: Code(s): Z01.419 - Encounter for gynecological examination (general) (routine) without abnormal findings Category: Medical Plan: Discussed: Current recommendations for pap smears per ASCCP guidelines. Breast awareness and periodic breast exams. Mammogram yearly. Maintain a healthy lifestyle including a well balanced diet and routine exercise. Patient verbalizes understanding and agrees to the plan of care. She was given opportunity to ask questions and all questions were answered to the best of my ability. 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 This note is constructed using voice recognition software. While every effort has been made to ensure accuracy, it security consultant errors may have been included. (2) Vaginal dryness: Code(s): N89.8 - Other specified noninflammatory disorders of vagina Plan: Discuss options for vaginal dryness with Replens moisturizers or vaginal Estrace. She opts to try the Estrace. Counseled regarding risks benefits, use and titration for maintenance dosing. Follow up in 2-3 months. The patient expressed understanding and agreement with the plan of care. All of her questions and concerns were addressed to the best of my ability. (3) Hot flash, menopausal: Code(s): N95.1 - Menopausal and female climacteric states Plan Counseled regarding hormone therapy for treatment of vasomotor symptoms. We will consider her options for therapy to include the patch with a progesterone pill combination. Risks benefits reviewed. Menopause resource handout provided. The patient expressed understanding and agreement with the plan of care. All of her questions and concerns were addressed to the best of my ability. Follow up if desires to initiate therapy. Medications: New estradiol 0.01%(0.1mg/gram) (Estrace) use nightly for two weeks, then twice a week 1 g vaginal 2XW 42.5 grams 1RF Coding Level of Care Code Est Pt Prev Care 40-64y(99954) Diagnoses Encounter for well woman exam with routine gynecological exam Z01.419 Vaginal dryness N89.8 Hot flash, menopausal N95.1
[2025-02-05 15:47] VITALS: BP 104/62; BMI 20.5
== END 2025-02-06 09:18 | disposition home or self-care (01) ==
LOC: HO.HWS 15:36
PROVIDERS: PCP Physician Assistant; Visit Provider Advanced Practice Midwife
DX: Z01.419 Encounter for gynecological examination (general) (routine) without abnormal findings (principal); N89.8 Other specified noninflammatory disorders of vagina; N95.1 Menopausal and female climacteric states
CPT/HCPCS: 99396; 99459